=== PATIENT | male | born 1970 | race Hispanic/Latino ===

== ENCOUNTER 2017-07-23 16:31 | Inpatient (IN) | payer SELFPAY ==
[2017-07-23] MEDS ORDERED: Ondansetron ODT 4 MG TAB SL PRN (19:00)
[2017-07-23] MEDS ORDERED: Acetaminophen 325 MG TAB PO PRN (19:00)
[2017-07-23] MEDS ORDERED: Ondansetron HCl/PF 4 MG/2 ML Vial IVP PRN ×2 (19:00→19:30)
[2017-07-23] MEDS ORDERED: Sodium Chloride 0.9% 1,000 ML IV SCH (19:00)
--- NOTE | 2017-07-23 19:09 | HP ---
PRIMARY CARE PHYSICIAN: The patient has no primary care physician. CHIEF COMPLAINT: Back pain, abdominal pain, fever, chills, nausea, and vomiting. HISTORY OF PRESENT ILLNESS: Mr. Garcia is a pleasant 47-year-old male without any signif icant past medical history, who presented to the emergency room in outside hospital at [facility]. He presented with the above-mentioned complaints. History is mainly obtained by the patient himself and supplemented by his mother and sister present in the room. Case has been discussed with the [facility] ER physician, Dr. Coreas. Electronic medical records from [facility] have been reviewed in detail. According to Mr. Garcia, he has been feeling poorly for the last week or so. He started to have b ack pain on both sides in the lower region about 5 days ago. Eventually, he started to have signific ant chills as well as high fever. This was associated with headache for 5 days. Now he has noted in creased urinary frequency and has started to vomit. He presented to the ER with these symptoms and f ound to be febrile with a temperature of 105.8 orally as well as tachycardic at a heart rate of 149. The patient reports that he has had similar symptoms in the past few other times, but has decided no t to pursue. In the emergency room, he underwent evaluation by a CT scan of the abdomen and pelvis which showed po ssible left-sided stranding of the kidney with mild hydroureteronephrosis. His urinalysis was consis tent with urinary tract infection with multiple bacteria, wbc's, and leukocyte esterase. His lactic acid is elevated at 4.3, indicating severe sepsis. He also has leukocytosis with left shift. Given all of these findings, he was given Rocephin for possible pyelonephritis and was transferred to our e mergency room. He was evaluated and Internal Medicine Team has been consulted for admission for seps is and pyelonephritis. The patient denies any chest pain, shortness of breath. He denies any orthopnea or PND. He denies a ny muscle weakness, diplopia, or dysphagia. He denies any diarrhea. He is not on any prescription m edications. He denies any drug abuse. PAST MEDICAL HISTORY: None, reviewed with the patient. PAST SURGICAL HISTORY: None, reviewed with the patient. PAST PSYCHIATRIC HISTORY: No anxiety or depression. SOCIAL HISTORY: He denies any alcohol or drug abuse. Smokes half a pack of cigarettes per day. ALLERGIES: Include PENICILLIN. CURRENT MEDICATIONS: None, reviewed with the patient. FAMILY HISTORY: Significant for renal stones in his sister who required surgical extraction. Also, history of diabetes in his family. His mother has hypertension and dyslipidemia. His father was a diabetic. REVIEW OF SYSTEMS: The following complete review of systems was negative, unless otherwise mentioned in the HPI or below: Constitutional: Weight loss or gain, ability to conduct usual activities. Ski n: Rash, itching. Eyes: Double vision, pain. ENT/Mouth: Nose bleeding, neck stiffness, pain, ten derness. Cardiovascular: Palpitations, dyspnea on exertion, orthopnea. Respiratory: Shortness of b reath, wheezing, cough, hemoptysis, fever or night sweats. Gastrointestinal: Poor appetite, abdomina l pain, heartburn, nausea, vomiting, constipation, or diarrhea. Genitourinary: Urgency, frequency, dysuria, nocturia. Musculoskeletal: Pain, swelling. Neurologic/Psychiatric: Anxiety, depression. Allergy/Immunologic: Skin rash, bleeding tendency. LABS EXAMINATION: Labs done at [facility] reviewed and are as follows: CBC shows WBC is 11.3 with 82% neutrophils. Serum chemistries show bicarbonate 21, lactic acid 4.3, creatinine kinase 259. Urinal ysis shows proteinuria, but no glucosuria or ketones. He has positive nitrite, leukocyte esterase an d 21-50 wbc's and 2+ bacteria per high power field. CT scan of the abdomen and pelvis has no evidenc e of any renal stones. He has no abdominal aortic aneurysm. The left kidney appears to have some pe rinephric stranding with mild hydronephrosis. Chest x-ray by my review has no evidence of pulmonary effusion, edema or infiltrate. PHYSICAL EXAMINATION: VITAL SIGNS: Upon presentation to [facility] Emergency Room include blood pressure 140/104, pulse of 1 49, respirations 20, saturating 92% on room air, temperature 105.8. Most recent vital signs in our e mergency room include saturation 94% on room air, blood pressure 114/77, heart rate of 88, and temper ature 98.1. GENERAL: The patient appears more comfortable by the report of his family. He is awake, alert, orie nted, and in no acute distress. HEENT: Mucous membranes slightly dry. No oropharyngeal exudate or erythema. Head is normocephalic, atraumatic. Pupils equal, reactive to light and accommodation. Extraocular movements intact. NECK: Supple without any lymphadenopathy, JVD or bruit. CHEST: Clear to auscultation without any wheezing, rales or rhonchi. Rate and rhythm is regular wit hout any murmur, rubs or gallops. ABDOMEN: Somewhat tender to palpation without any rebound, guarding or rigidity. He has left flank tenderness, left CVA tenderness. EXTREMITIES: Free of any cyanosis, clubbing, or edema. NEUROLOGIC: Nonfocal. SKIN: Free of any rashes or bruises, feels warm and dry to touch. PSYCHIATRIC: Normal affect. IMPRESSION AND PLAN: 1. Sepsis. This is secondary to pyelonephritis. I have ordered urine cultures and blood cultures. He will be treated with cefepime for possible pyelonephritis at this time. Antibiotics can be tailo red based on the results of the cultures. Start him on intravenous fluid as well. He has received a lmost 2 liters of intravenous fluids in the initial resuscitation phase. His heart rate and temperat ure have responded very well to it. Currently, he is hemodynamically stable and can be admitted to [facility] medical floor. We will keep a low threshold for transfer to telemetry if he starts to decline aga in. Most likely scenario is passed renal stone. I have discussed this possibility with the patient especially in the light of prior episodes that were similar to today's episode. He is instructed to keep himself well hydrated in the future. 2. Pyelonephritis as above #1. Intravenous fluids and Intravenous antibiotics with cultures have b een ordered. We will continue symptomatic and supportive care. 3. Family history of diabetes. I have discussed diabetic precautionary with the patient. He report s drinking cooler full of soda throughout the day. He is once again educated about the need to monit or his sugars. We will also check a hemoglobin A1c while he is here as he has not established a [facility] care physician. He is encouraged to do so. 4. Tachycardia due to severe sepsis. It has responded well to intravenous fluids and we will contin ue that for now. 5. Deep venous thrombosis and gastrointestinal prophylaxis. 6. Code status: FULL CODE, implied due to the young age. I also discussed with the patient. 7. P.r.n. medication orders. DISPOSITION: Mr. Garcia is being admitted to hospital for sepsis and pyelonephritis. Estimated l ength of stay is 2-3 midnight. Further management will depend upon his clinical course.
[2017-07-23] MEDS ORDERED: Lorazepam 1 MG TAB PO PRN (19:30)
[2017-07-23] MEDS ORDERED: hydrALAZINE 20 MG/ML VIAL SLOW IVP PRN (19:30)
[2017-07-23] MEDS: Sodium Chloride 0.9% 1,000 ML IV SCH (19:30)
[2017-07-23] MEDS ORDERED: Loratadine 10 MG TAB PO PRN (19:30)
[2017-07-23] MEDS ORDERED: Senokot 8.6 MG TAB PO PRN (19:30)
[2017-07-23] MEDS ORDERED: Benzonatate 100 MG CAP PO PRN (19:30)
[2017-07-23] MEDS ORDERED: Diabetic Tussin 200 MG/10 ML UDCUP PO PRN (19:30)
[2017-07-23] MEDS ORDERED: HYDROcodone/Acetaminophen 5/325 mg Tablet PO PRN (19:30)
[2017-07-23] MEDS ORDERED: Nitroglycerin 0.4 MG TAB (25 Tab Bottle) SL PRN (19:30)
[2017-07-23] MEDS ORDERED: Mag-Al 1200 mg/1200 mg/30 ML UDCUP PO PRN (19:30)
[2017-07-23] MEDS ORDERED: Bisacodyl 5 MG TAB PO PRN (19:30)
[2017-07-23] MEDS ORDERED: traMADol HCl 50 MG TAB PO PRN (19:30)
[2017-07-23] MEDS ORDERED: Calcium Carbonate 500 MG ChewTAB PO PRN (19:30)
[2017-07-23] MEDS: Acetaminophen 325 MG TAB PO PRN (19:48)
[2017-07-23] MEDS: Famotidine 20 MG TAB PO SCH (19:48)
[2017-07-23 19:52] LABS: Hemoglobin A1c 6.1 % (4.0-6.0)
[2017-07-23] MEDS: Cefepime 2 GM, Syringe 2.5 ML in Sterile Water 10 ML IVPB SCH (20:51)
[2017-07-23 21:58] VITALS: BMI 31.0
[2017-07-24] MEDS: Sodium Chloride 0.9% 1,000 ML IV SCH ×2 (04:24→10:38)
[2017-07-24 05:01] LABS: #Lymphocytes 1.8 thou/uL (1.20-3.40); #Neutrophils 7.8 thou/uL (1.40-6.50); %Basophils 0.1 % (0.0-1.0); %Eosinophils 0.3 % (0.0-10.0); %Lymphocytes 16.7 % (21.0-51.0); %Monocytes 9.4 % (0.0-10.0); Hematocrit 39.7 % (42.0-52.0); Mean Platelet Volume 7.2 fL (7.4-10.4); Red Blood Cell (RBC) Count 4.45 mill/uL (4.70-6.10); White Blood Cell (WBC) Count 10.6 thou/uL (4.8-10.8)
[2017-07-24 05:25] LABS: ALT (SGPT) 28 U/L (8-55); AST (SGOT) 25 U/L (5-34); Alkaline Phosphatase 97 U/L (40-150); Anion Gap 12 mmol/L (10-20); BUN (Urea Nitrogen) 9 mg/dL (8.9-20.6); Bilirubin, Total 0.3 mg/dL (0.2-1.2); Calc. Creatinine Clearance 107 mL/min (70-130); Calcium 8.3 mg/dL (7.8-10.44); Carbon Dioxide 24 mmol/L (22-29); Chloride 106 mmol/L (98-107); Estimated GFR-MDRD 80; Globulin 3.1 g/dL (2.4-3.5); Protein, Total 6.4 g/dL (6.0-8.3)
[2017-07-24] MEDS: Cefepime 2 GM, Syringe 2.5 ML in Sterile Water 10 ML IVPB SCH (07:53)
[2017-07-24] MEDS ORDERED: Dextrose 50% Abboject 50 ML SYRINGE SLOW IVP PRN (07:54)
[2017-07-24] MEDS ORDERED: HumaLOG 300 UNITS/3 ML VIAL SC PRN ×2 (07:54)
[2017-07-24] MEDS ORDERED: Dextrose 5% in Water 1,000 ML IV PRN (07:54)
[2017-07-24] MEDS: Famotidine 20 MG TAB PO SCH ×2 (07:54→20:04)
[2017-07-24] MEDS: Enoxaparin Sodium 40 MG/0.4 ML SYRINGE SC SCH (07:55)
--- NOTE | 2017-07-24 12:27 | PDOC.PN ---
- Subjective Encounter Start Date: 07/24/17 Encounter Start Time: 09:20 -: old records requested/rev Patient seen and examined. No new complaints. No overnight events - Objective MAR Reviewed: Yes Vital Signs & Weight: Vital Signs (12 hours) Temp Pulse Resp BP Pulse Ox 07/24/17 08:00 98.9 F 86 18 07/24/17 07:56 98.9 F 86 18 109/74 95 07/24/17 04:00 99.2 F 86 18 114/67 94 L Weight Weight 181 lb I&O: 07/23/17 07/24/17 07/25/17 06:59 06:59 06:59 Intake Total 1500 Output Total 1600 Balance -100 Result Diagrams: 07/24/17 04:47 07/24/17 04:47 Additional Labs: Accuchecks 07/24/17 12:04 POC Glucose 163 H Radiology Reviewed by me: Yes Phys Exam - Physical Examination Constitutional: NAD HEENT: PERRLA, moist MMs, sclera anicteric Neck: no JVD, supple Respiratory: no wheezing, no rales, no rhonchi Cardiovascular: RRR, no significant murmur, no rub Gastrointestinal: soft, non-tender, no distention, positive bowel sounds cva tenderness on left Musculoskeletal: no edema, pulses present Neurological: non-focal, normal sensation, moves all 4 limbs Psychiatric: normal affect, A&O x 3 Skin: no rash, normal turgor Dx/Plan (1) Acute pyelonephritis Code(s): N10 - ACUTE PYELONEPHRITIS Status: Acute (2) New onset type 2 diabetes mellitus Code(s): E11.9 - TYPE 2 DIABETES MELLITUS WITHOUT COMPLICATIONS Status: Acute (3) Sepsis Code(s): A41.9 - SEPSIS, UNSPECIFIED ORGANISM Status: Acute (4) Obesity (BMI 30.0-34.9) Code(s): E66.9 - OBESITY, UNSPECIFIED Status: Chronic - Plan cont current plan of care, continue antibiotics * start diabetic diet * hyperglycemia protocol * dc quintanilla * continue ivf * continue rocephin and add levaquin * medication reviewed as below * symptomatic treatment. * follow culture Review of Systems - Review of Systems Constitutional: negative: Fever, Chills, Sweats, Weakness, Malaise, Other ENT: negative: Ear Pain, Ear Discharge, Nose Pain, Nose Discharge, Nose Congestion, Mouth Pain, Mouth Swelling, Throat Pain, Throat Swelling, Other Respiratory: negative: Cough, Dry, Shortness of Breath, Hemoptysis, SOB with Excertion, Pleuritic Pain, Sputum, Wheezing Cardiovascular: negative: Chest Pain, Palpitations, Orthopnea, Paroxysmal Noc. Dyspnea, Edema, Light Headedness, Other Gastrointestinal: negative: Nausea, Vomiting, Abdominal Pain, Diarrhea, Constipation, Melena, Hematochezia, Other Genitourinary: negative: Dysuria, Frequency, Incontinence, Hematuria, Retention , Other Musculoskeletal: negative: Neck Pain, Shoulder Pain, Arm Pain, Back Pain, Hand Pain, Leg Pain, Foot Pain, Other - Medications/Allergies Allergies/Adverse Reactions: Allergies Allergy/AdvReac Type Severity Reaction Status Date / Time penicillin G Allergy Verified 07/23/17 19:28 Medications: Current Medications Acetaminophen (Tylenol) 650 mg PO Q4H PRN PRN Reason: Headache/Fever or Pain Last Admin: 07/23/17 19:48 Dose: 650 mg Hydrocodone Bitart/Acetaminophen (Wheeler 5/325) 1 tab PO Q4H PRN PRN Reason: Moderate Pain (4-6) Al Hydroxide/Mg Hydroxide (Maalox) 30 ml PO Q6H PRN PRN Reason: Heartburn or Indigestion Benzonatate (Tessalon) 100 mg PO Q4H PRN PRN Reason: Cough Bisacodyl (Dulcolax) 10 mg PO DAILYPRN PRN PRN Reason: Constipation Calcium Carbonate (Tums) 1,000 mg PO Q4H PRN PRN Reason: Heartburn or Indigestion Dextrose/Water (Dextrose 50%) 25 gm SLOW IVP PRN PRN PRN Reason: Hypoglycemia Enoxaparin Sodium (Lovenox) 40 mg SC 0900 [facility] Last Admin: 07/24/17 07:55 Dose: 40 mg Famotidine (Pepcid) 20 mg PO BID [facility] Last Admin: 07/24/17 07:54 Dose: 20 mg Glucagon (Glucagon) 1 mg IM PRN PRN PRN Reason: Hypoglycemia Guaifenesin (Robitussin Sf) 200 mg PO Q4H PRN PRN Reason: Cough Hydralazine HCl (Apresoline) 10 mg SLOW IVP Q4H PRN PRN Reason: Systolic BP > 170 Sodium Chloride (Normal Saline 0.9%) 1,000 mls @ 100 mls/hr IV .Q10H [facility] Last Admin: 07/24/17 10:38 Dose: 1,000 mls Cefepime HCl 2 gm/ Syringe 2.5 (ml/ Sterile Water) 12.5 mls @ 150 mls/hr IVPB Q12HR [facility] Last Admin: 07/24/17 07:53 Dose: 12.5 mls Dextrose/Water (D5w) 1,000 mls @ 0 mls/hr IV .Q0M PRN; As Directed PRN Reason: Hypoglycemia Insulin Human Lispro (Humalog) 0 units SC .MILD SLIDING SCALE PRN PRN Reason: Mild Correctional Scale Insulin Human Lispro (Humalog) 0 units SC .BEDTIME SLIDING SC PRN PRN Reason: Bedtime Correctional Scale Loratadine (Claritin) 10 mg PO DAILYPRN PRN PRN Reason: Sinus Symptoms Lorazepam (Ativan) 1 mg PO Q4H PRN PRN Reason: Anxiety/Agitation Last Admin: 07/23/17 19:48 Dose: 1 mg Nitroglycerin (Nitrostat) 0.4 mg SL Q5MIN PRN PRN Reason: Chest Pain Ondansetron HCl (Zofran) 4 mg IVP Q6H PRN PRN Reason: Nausea/Vomiting Senna (Senokot) 2 tab PO HSPRN PRN PRN Reason: Constipation Sodium Chloride (Flush - Normal Saline) 10 ml IVF Q12HR [facility] Last Admin: 07/24/17 08:06 Dose: Not Given Sodium Chloride (Flush - Normal Saline) 10 ml IVF PRN PRN PRN Reason: Saline Flush Tramadol HCl (Ultram) 50 mg PO Q4H PRN PRN Reason: Moderate Pain (4-6)
[2017-07-24] MEDS ORDERED: cefTRIAXone\\ROCEPHIN 1 GM, Syringe 0.4 ML in Sterile Water 9.6 ML SLOW IVP SCH (12:30)
[2017-07-24] MEDS ORDERED: cefTRIAXone\\ROCEPHIN 1 GM in Sodium Chloride 0.9% 100 ML IVPB SCH (12:30)
[2017-07-24] MEDS: Acetaminophen 325 MG TAB PO PRN (16:13)
[2017-07-25] MEDS: Sodium Chloride 0.9% 1,000 ML IV SCH ×2 (00:45→08:26)
[2017-07-25 04:57] LABS: #Eosinphils 0.1 thou/uL (0.0-0.7); #Monocytes 0.9 thou/uL (0.11-0.59); #Neutrophils 5.6 thou/uL (1.40-6.50); %Basophils 0.3 % (0.0-1.0); %Eosinophils 0.6 % (0.0-10.0); %Monocytes 10.4 % (0.0-10.0); Hematocrit 39.5 % (42.0-52.0); Mean Platelet Volume 7.6 fL (7.4-10.4); Red Blood Cell (RBC) Count 4.45 mill/uL (4.70-6.10); White Blood Cell (WBC) Count 8.6 thou/uL (4.8-10.8)
[2017-07-25 05:17] LABS: Anion Gap 10 mmol/L (10-20); BUN (Urea Nitrogen) 8 mg/dL (8.9-20.6); Calc. Creatinine Clearance 118 mL/min (70-130); Calcium 8.9 mg/dL (7.8-10.44); Carbon Dioxide 26 mmol/L (22-29); Chloride 108 mmol/L (98-107); Estimated GFR-MDRD 89
[2017-07-25] MEDS: Enoxaparin Sodium 40 MG/0.4 ML SYRINGE SC SCH (07:45)
[2017-07-25] MEDS: Famotidine 20 MG TAB PO SCH (07:45)
[2017-07-25 08:29] VITALS: BP 119/76; TEMP 98.1
--- NOTE | 2017-07-25 11:22 | PDOC.PN ---
- Subjective Encounter Start Date: 07/25/17 Encounter Start Time: 08:20 Patient seen and examined. No new complaints. No overnight events - Objective MAR Reviewed: Yes Vital Signs & Weight: Vital Signs (12 hours) Temp Pulse Resp BP Pulse Ox 07/25/17 08:00 98.1 F 69 16 119/76 96 07/25/17 07:13 99.2 F 67 18 07/25/17 03:36 96 07/24/17 23:28 99.2 F 67 18 120/68 Weight Weight 181 lb I&O: 07/24/17 07/25/17 07/26/17 06:59 06:59 06:59 Intake Total 1500 240 Output Total 1600 Balance -100 240 Result Diagrams: 07/25/17 04:04 07/25/17 04:04 Additional Labs: Accuchecks 07/25/17 07/24/17 07/24/17 04:54 19:33 16:09 POC Glucose 103 162 H 117 H 07/24/17 12:04 POC Glucose 163 H Phys Exam - Physical Examination Constitutional: NAD HEENT: PERRLA Neck: no JVD, supple Respiratory: no wheezing, no rales, no rhonchi Cardiovascular: RRR, no significant murmur, no rub Gastrointestinal: soft, non-tender, no distention, positive bowel sounds Musculoskeletal: no edema, pulses present Neurological: non-focal, normal sensation, moves all 4 limbs Psychiatric: normal affect, A&O x 3 Skin: no rash, normal turgor Dx/Plan (1) Acute pyelonephritis Code(s): N10 - ACUTE PYELONEPHRITIS Status: Acute (2) New onset type 2 diabetes mellitus Code(s): E11.9 - TYPE 2 DIABETES MELLITUS WITHOUT COMPLICATIONS Status: Acute (3) Sepsis Code(s): A41.9 - SEPSIS, UNSPECIFIED ORGANISM Status: Acute (4) Obesity (BMI 30.0-34.9) Code(s): E66.9 - OBESITY, UNSPECIFIED Status: Chronic - Plan cont current plan of care, plan discussed w/ family, continue antibiotics * medication reviewed as below * symptomatic treatment * stable for discharge * see discharge summery. Review of Systems - Review of Systems ENT: negative: Ear Pain, Ear Discharge, Nose Pain, Nose Discharge, Nose Congestion, Mouth Pain, Mouth Swelling, Throat Pain, Throat Swelling, Other Respiratory: negative: Cough, Dry, Shortness of Breath, Hemoptysis, SOB with Excertion, Pleuritic Pain, Sputum, Wheezing Cardiovascular: negative: Chest Pain, Palpitations, Orthopnea, Paroxysmal Noc. Dyspnea, Edema, Light Headedness, Other Gastrointestinal: negative: Nausea, Vomiting, Abdominal Pain, Diarrhea, Constipation, Melena, Hematochezia, Other Genitourinary: negative: Dysuria, Frequency, Incontinence, Hematuria, Retention , Other Musculoskeletal: negative: Neck Pain, Shoulder Pain, Arm Pain, Back Pain, Hand Pain, Leg Pain, Foot Pain, Other - Medications/Allergies Allergies/Adverse Reactions: Allergies Allergy/AdvReac Type Severity Reaction Status Date / Time penicillin G Allergy Verified 07/23/17 19:28
--- NOTE | 2017-07-25 12:56 | DIS ---
PRIMARY CARE PHYSICIAN: [facility] call admission. DATE OF ADMISSION: 07/23/2017 DATE OF DISCHARGE: 07/25/2017 DISCHARGE DISPOSITION: Home. PRIMARY DISCHARGE DIAGNOSES: 1. Acute pyelonephritis. 2. New onset diabetes type 2. 3. Sepsis. SECONDARY DISCHARGE DIAGNOSES: Obesity with BMI 31. PRIMARY PROCEDURE/OPERATION: None. RADIOLOGICAL INVESTIGATION: Abdomen and pelvis CT scan was done, which showed findings suggestive of left-sided pyelonephritis. Chest x-ray was normal. SIGNIFICANT LABS: WBC 8.6, hemoglobin 13.1, platelets 208. Sodium 140, potassium 4.4, BUN 8, creati nine 0.92, calcium 8.9. LFTs normal. His urine culture grew E. coli and blood culture is negative. DISCHARGE MEDICATIONS: Ciprofloxacin 500 mg p.o. b.i.d. for 10 days. CONTRAINDICATIONS: None. CODE STATUS: FULL CODE. INPATIENT CONSULTANTS: None. ALLERGIES: PENICILLIN. DISCHARGE PLAN: Post hospital, the patient will follow up with primary care physician. HOSPITAL COURSE: A 47-year-old male with the above mentioned medical problem, who was admitted by Dr Celia Chong. Please see her H&P for further details. The patient was having left-sided flank pain and urinary tract infection symptoms. He was having initially fever. The patient was admitted to medic al floor. He had CT of the abdomen and pelvis in the emergency room, which showed left-sided promine nce of ureter and pelvis, which was consistent with acute pyelonephritis. His chest x-ray was normal . His blood culture repeat one was negative and initial blood culture showed contaminant coagulase-n egative Staph aureus. His initial urine culture grew E. coli and repeat one was negative and the pat ient was given Cipro for another 10 days. The patient is seen and examined at bedside today. Please see my progress note from today for furthe r details. The patient has family history of diabetes and his hemoglobin A1c was 6.1 and that is why we provided dietary education. He does not need any diabetes medication, but patient is given instr uction about diabetic diet. The patient is also advised about exercise and weight loss program. Ove rall, the patient may not need diabetes medication as long as he is compliance with diabetic diet and doing exercise. He will follow with primary care physician. Total time spent on discharge day 31 minutes.
== END 2017-07-25 10:34 | disposition home or self-care (01) | DRG 872 ==
LOC: ERS 16:31 → T4-A 17:08
PROVIDERS: ADMIT Internal Medicine; ATTEND Internal Medicine
DX: A41.9 Sepsis, unspecified organism (principal); N13.30 Unspecified hydronephrosis; N10 Acute pyelonephritis; F17.210 Nicotine dependence, cigarettes, uncomplicated; Z88.0 Allergy status to penicillin; E11.9 Type 2 diabetes mellitus without complications; E66.9 Obesity, unspecified; Z68.31 Body mass index [BMI] 31.0-31.9, adult
CPT/HCPCS: 36415; 36416; 80048; 80053; 83036; 85025; 87086; 99285; A4216; J0692; J0696; J1650; J1956